=== PATIENT | female | born 1955 | race Asian ===

== ENCOUNTER 2024-04-30 19:57 | Emergency (ER) | payer OTHER ==
[~2024-04-30] VITALS: Ht 149.9 cm; Wt 43.6 kg
[2024-04-30 20:15] VITALS: TEMP 98.6
[2024-04-30 21:46] LABS: BASOPHILS % (AUTO) 0.8 % (0.0-2.0); EOSINOPHILS % (AUTO) 0.8 % (1.0-6.0); HEMATOCRIT 41.8 % (36-46); HEMOGLOBIN 14.1 g/dL (12.0-16.0); LYMPHOCYTES # (AUTO) 2.2 K/uL (1.0-4.8); LYMPHOCYTES % (AUTO) 27.6 % (22.0-44.0); MEAN CORPUSCULAR HEMOGLOBIN 30.2 pg (26.0-34.0); MEAN CORPUSCULAR HGB CONC 33.8 G/dL (31.0-37.0); MEAN CORPUSCULAR VOLUME 90 fL (80-100); MONOCYTES # (AUTO) 0.7 K/uL (0.1-1.0); NEUTROPHILS # (AUTO) 4.8 K/uL (1.8-7.7); NEUTROPHILS % (AUTO) 61.8 % (40.0-70.0); PLATELET COUNT (AUTO) 375 K/uL (150-450); RED BLOOD CELL COUNT(AUTO) 4.67 MIL/uL (4.00-5.20); RED CELL DISTRIBUTION WIDTH 12.7 % (11.5-14.5); WHITE BLOOD COUNT (AUTO) 7.8 K/uL (4.5-11.0)
[2024-04-30 21:54] LABS: ANION GAP 6 mmol/L (8-16); CALCIUM, TOTAL 9.6 mg/dL (8.8-10.5); CARBON DIOXIDE 32 mmol/L (22-29); CHLORIDE 95 mmol/L (98-107); CREATININE 0.85 mg/dL (0.60-1.30); GLOMERULAR FILTR. RATE CALC > 60 mL/min (>60); GLUCOSE,RANDOM 154 mg/dL (70-110); POTASSIUM 3.6 mmol/L (3.5-5.1); SODIUM SERUM 133 mmol/L (136-145); UREA NITROGEN, BLOOD 11 mg/dL (7-18)
[2024-04-30 22:03] LABS: B-TYPE NATRIURETIC PEPTIDE 36 pg/mL (0-100)
[2024-04-30 22:04] LABS: ALANINE AMINOTRANSFERASE 26 U/L (12-78); ALBUMIN 4.4 g/dL (3.4-5.0); ALKALINE PHOSPHATASE 68 U/L (46-116); ASPARTATE AMINOTRANSFERASE 29 U/L (15-37); BILIRUBIN,TOTAL 0.3 mg/dL (0.1-1.0); TOTAL PROTEIN, SERUM 8.9 g/dL (6.4-8.2); TROPONIN I-HIGH SENSITIVITY Less Than 4 ng/L (<51)
[2024-04-30] MEDS: PERTUSS(ACELL),DIPH,TET/PF 0.5 ML SYRINGE [ADULT] IM. ONE (22:16)
[2024-04-30] MEDS: AMOX TR/POT CLAV 875 MG/125 MG TABLET PO ONE (22:16)
[2024-04-30] MEDS: RABIES IMMUNE GLOBULIN/PF 150 UNITS/ML 10 ML VIAL IM. ONE (22:25)
[2024-04-30] MEDS: RABIES VACCINE, HUMAN DIPLOID/PF 2.5 UNITS/ML VIAL IM. ONE (22:26)
[2024-04-30 22:50] VITALS: BP 207/104; PULSE 82; RESP 18; O2SAT 99
== END 2024-04-30 22:59 | disposition home or self-care (01) ==
LOC: EMS 19:59
DX: S61.452A Open bite of left hand, initial encounter (principal); E11.9 Type 2 diabetes mellitus without complications; I10 Essential (primary) hypertension; W54.0XXA Bitten by dog, initial encounter; Y93.89 Activity, other specified; Y92.89 Other specified places as the place of occurrence of the external cause; Y99.8 Other external cause status
CPT/HCPCS: 80048; 80076; 83880; 84484; 85025; 90375; 90471; 90472; 90675; 90715; 93005; 96372; 99284

== ENCOUNTER 2024-05-03 10:20 | Emergency (ER) | payer OTHER ==
[~2024-05-03] VITALS: Ht 149.9 cm; Wt 43.2 kg
[2024-05-03 10:33] VITALS: BP 167/79; PULSE 75; RESP 16; TEMP 97.6; O2SAT 98
[2024-05-03] MEDS: RABIES VACCINE, HUMAN DIPLOID/PF 2.5 UNITS/ML VIAL IM. ONE (11:33)
== END 2024-05-03 12:13 | disposition home or self-care (01) ==
LOC: EMS 10:23
DX: Z23 Encounter for immunization (principal); Z20.3 Contact with and (suspected) exposure to rabies; E11.9 Type 2 diabetes mellitus without complications; I10 Essential (primary) hypertension; W54.0XXA Bitten by dog, initial encounter; Y93.89 Activity, other specified; Y92.89 Other specified places as the place of occurrence of the external cause; Y99.8 Other external cause status
CPT/HCPCS: 90471; 90675; 99281

== ENCOUNTER 2024-05-07 11:10 | Emergency (ER) | payer OTHER ==
[~2024-05-07] VITALS: Ht 144.8 cm; Wt 47.7 kg
[2024-05-07 11:15] VITALS: TEMP 98.5
[2024-05-07] MEDS ORDERED: ASPI-1444 PO (11:25)
[2024-05-07] MEDS ORDERED: HYDR25TA2 PO (11:25)
[2024-05-07] MEDS ORDERED: PRAV10TA39 PO (11:25)
[2024-05-07] MEDS ORDERED: METF-1211 PO (11:25)
[2024-05-07] MEDS ORDERED: LISI-892 PO (11:25)
[2024-05-07] MEDS ORDERED: CHOL200074 PO (11:25)
[2024-05-07] MEDS: BACITRACIN 0.9 GM PACKET OINTMENT TP ONE (13:09)
[2024-05-07] MEDS: RABIES VACCINE, HUMAN DIPLOID/PF 2.5 UNITS/ML VIAL IM. ONE (13:16)
[2024-05-07 13:23] VITALS: BP 155/75; PULSE 81; RESP 16; O2SAT 99
== END 2024-05-07 13:24 | disposition home or self-care (01) ==
LOC: EMS 11:10
DX: S60.922D Unspecified superficial injury of left hand, subsequent encounter (principal); E11.9 Type 2 diabetes mellitus without complications; I10 Essential (primary) hypertension; Z20.3 Contact with and (suspected) exposure to rabies; Z23 Encounter for immunization; Z79.82 Long term (current) use of aspirin; Z79.84 Long term (current) use of oral hypoglycemic drugs; Z79.899 Other long term (current) drug therapy; W54.0XXD Bitten by dog, subsequent encounter
CPT/HCPCS: 82962; 90471; 90675; 99282

== ENCOUNTER 2024-05-14 11:53 | Emergency (ER) | payer OTHER ==
[~2024-05-14] VITALS: Ht 149.9 cm; Wt 43.6 kg
[~2024-05-14 11:53] MED LIST: ASPI-1444 PO; CHOL200074 PO; HYDR25TA2 PO; LISI-892 PO; METF-1211 PO; PRAV10TA39 PO
[2024-05-14 12:00] VITALS: BP 192/58; PULSE 76; RESP 18; TEMP 97.7; O2SAT 95
[2024-05-14] MEDS: RABIES VACCINE, HUMAN DIPLOID/PF 2.5 UNITS/ML VIAL IM. ONE (13:44)
== END 2024-05-14 14:12 | disposition home or self-care (01) ==
LOC: EMS 11:56
DX: S61.451D Open bite of right hand, subsequent encounter (principal); E11.9 Type 2 diabetes mellitus without complications; I10 Essential (primary) hypertension; Z20.3 Contact with and (suspected) exposure to rabies; Z23 Encounter for immunization; Z79.82 Long term (current) use of aspirin; Z79.84 Long term (current) use of oral hypoglycemic drugs; Z79.899 Other long term (current) drug therapy; W54.0XXD Bitten by dog, subsequent encounter
CPT/HCPCS: 90471; 90675; 99281